=== PATIENT | female | born 1965 | race Two or more races ===

== ENCOUNTER 2019-10-20 15:35 | Inpatient (IN) | payer OTHER ==
[~2019-10-20] VITALS: Ht 157.5 cm; Wt 67.6 kg
[~2019-10-20 15:35] MED LIST: ANAPROX275 MG; DEPO-MEDROL40 MG/ML IM; FLEXERIL5 MG; NABUMETONE750 MG PO; TIZANIDINE HCL2 MG PO
[2019-10-20] MEDS ORDERED: MULTI VITAMIN1 EACH (15:53)
[2019-10-24] MEDS ORDERED: CIPRO500 MG PO (14:57)
[2019-10-24] MEDS ORDERED: PEPCID AC20 MG PO (14:57)
[2019-10-24] MEDS ORDERED: INTESTINEX680 M1 PO (14:57)
[2019-10-24] MEDS ORDERED: FLAGYL500MG PO (14:57)
== END 2019-10-25 15:25 | disposition home or self-care (01) | DRG 392 ==
LOC: ER 15:35 → SEC-K 10-21 11:04 → MEDJ 10-21 11:04
PROVIDERS: ADMIT Internal Medicine
DX: K57.32 Diverticulitis of large intestine without perforation or abscess without bleeding (principal); E86.0 Dehydration; E87.8 Other disorders of electrolyte and fluid balance, not elsewhere classified; K76.0 Fatty (change of) liver, not elsewhere classified

== ENCOUNTER 2024-06-15 11:40 | Emergency (ER) | payer OTHER ==
[~2024-06-15] VITALS: Ht 154.9 cm; Wt 72.6 kg
[~2024-06-15 11:40] MED LIST changes: +CIPRO500 MG PO; +FLAGYL500MG PO; +INTESTINEX680 M1 PO; +MULTI VITAMIN1 EACH; +PEPCID AC20 MG PO
[2024-06-15 12:30] VITALS: BP 131/85; O2SAT 96
[2024-06-15] MEDS ORDERED: 0.9 % SODIUM CHLORIDE 1,000 ML IV SCH (12:45)
[2024-06-15 13:26] LABS: HEMATOCRIT 37.9 % (36.0-45.00); HEMOGLOBIN 12.8 g/dL (12.0-15.00); MEAN CELL VOLUME 84.3 fL (80.00-100.00); MEAN CORPUSCULAR HEMOGLOBIN 28.5 pg (27.00-32.0); MEAN CORPUSCULAR HGB CONC 33.8 g/dl (32.0-36.0); PLATELET COUNT 310 K/uL (150-450); RED CELL DISTRIBUTION WIDTH 13.9 % (11.5-14.5)
[2024-06-15 13:38] LABS: PH,URINE 5.5 (5.0-8.0); URINE APPEARANCE Clear; URINE BILIRRUBIN Negative (NEGATIVE); URINE BLOOD Negative; URINE COLOR Yellow; URINE GLUCOSE Negative (NEGATIVE); URINE KETONE Negative (NEGATIVE); URINE LEUKOCYTE Moderate; URINE NITRATE Negative; URINE PROTEIN Negative (NEGATIVE); URINE UROBILINOGEN 0.2 E.U./dl
[2024-06-15 13:42] LABS: URINE BACTERIA 28.9 uL (0.0-1933); URINE WBC 41.3 uL (0.0-23.2)
[2024-06-15 13:51] LABS: URINE RBC 0.7 uL (0.0-20.8)
[2024-06-15 14:04] LABS: CALCIUM 10.1 mg/dL (8.5-10.1); CREATININE SERUM 0.81 mg/dL (0.55-1.02); GFR 72.88
[2024-06-15] MEDS ORDERED: CEFTRIAXONE SODIUM 1,000 MG VIAL IV ONE (19:45)
[2024-06-15] MEDS ORDERED: KETOROLAC TROMETHAMINE 60 MG VIAL IM ONE (19:45)
[2024-06-15] MEDS ORDERED: METRONIDAZOLE500 MG PO (20:41)
[2024-06-15] MEDS ORDERED: PEPCID AC20 MG PO (20:41)
== END 2024-06-15 21:10 | disposition home or self-care (01) ==
LOC: ER 11:41
PROVIDERS: Emergency Medicine
DX: K57.92 Diverticulitis of intestine, part unspecified, without perforation or abscess without bleeding (principal); R10.9 Unspecified abdominal pain; Z88.2 Allergy status to sulfonamides; Z91.013 Allergy to seafood
CPT/HCPCS: 36415; 74177; Q9965

== ENCOUNTER 2024-06-17 09:31 | Emergency (ER) | payer OTHER ==
[~2024-06-17] VITALS: Ht 154.9 cm; Wt 74.8 kg
[~2024-06-17 09:31] MED LIST changes: +METRONIDAZOLE500 MG PO
[2024-06-17] MEDS ORDERED: KETOROLAC TROMETHAMINE 60 MG VIAL IM ONE (10:30)
[2024-06-17] MEDS ORDERED: DIPHENHYDRAMINE HCL 50 MG/ML VIAL 1ML IV ONE (10:30)
[2024-06-17] MEDS ORDERED: FAMOtidine 10 MG/ML (4ML VIAL) IV ONE (10:30)
[2024-06-17] MEDS ORDERED: METHYLPREDNISOLONE SOD SUCC 40 MG VIAL IV ONE (10:30)
[2024-06-17 10:57] LABS: HEMATOCRIT 37.8 % (36.0-45.00); HEMOGLOBIN 12.8 g/dL (12.0-15.00); MEAN CELL VOLUME 85.8 fL (80.00-100.00); MEAN CORPUSCULAR HGB CONC 33.7 g/dl (32.0-36.0); PLATELET COUNT 285 K/uL (150-450); RED BLOOD COUNT 4.41 M/uL (4.00-6.00); RED CELL DISTRIBUTION WIDTH 13.7 % (11.5-14.5)
[2024-06-17 10:59] LABS: PH,URINE 5.5 (5.0-8.0); URINE APPEARANCE Clear; URINE BILIRRUBIN Negative (NEGATIVE); URINE BLOOD Negative; URINE COLOR Yellow; URINE GLUCOSE Negative (NEGATIVE); URINE KETONE Negative (NEGATIVE); URINE LEUKOCYTE Trace; URINE NITRATE Negative; URINE PROTEIN Negative (NEGATIVE); URINE UROBILINOGEN 0.2 E.U./dl
[2024-06-17 11:02] LABS: URINE WBC 8.7 uL (0.0-23.2)
[2024-06-17 11:32] LABS: ALBUMIN 3.8 gm/dL (3.4-5.0); BILIRUBIN TOTAL 0.28 mg/dL (0.3-1.2); CALCIUM 9.9 mg/dL (8.5-10.1); CREATININE SERUM 0.96 mg/dL (0.55-1.02); GFR 59.9; GLOBULINA 4.8 G/DL (2.4-3.5); POTASSIUM 4.72 mEq/L (3.5-5.1); TOTAL PROTEIN 8.6 gm/dL (6.4-8.2)
[2024-06-17 12:20] LABS: URINE CAST 0.61 uL (0.0-1.40); URINE RBC 0.3 uL (0.0-20.8)
[2024-06-17] MEDS ORDERED: KETO10TA2 PO (14:30)
== END 2024-06-17 14:37 | disposition home or self-care (01) ==
LOC: ER 09:33
PROVIDERS: General Practice
DX: K57.32 Diverticulitis of large intestine without perforation or abscess without bleeding (principal); Z88.2 Allergy status to sulfonamides; Z91.013 Allergy to seafood